=== PATIENT | female | born 1960 | race Caucasian/White ===

== ENCOUNTER → 2017-06-19 | Outpatient (CLI) | payer MEDICAID | LOC: ROC 11:02 | PROVIDERS: ATTEND Radiology Radiation Oncology | DX: C50.912 Malignant neoplasm of unspecified site of left female breast (principal) | CPT/HCPCS: 99213; G0463 ==

== ENCOUNTER 2017-06-22 19:24 | Emergency (ER) | payer MEDICAID ==
[~2017-06-22] VITALS: Ht 157.5 cm; Wt 87.9 kg
[2017-06-22 19:29] VITALS: BP 126/74
[2017-06-22 20:21] LABS: RAPID INFLUENZA A Negative (Negative); RAPID INFLUENZA B Negative (Negative)
[2017-06-22] MEDS ORDERED: AZITHROMYCIN 500 MG TABLET ONE (20:25)
[2017-06-22] MEDS ORDERED: CEFTRIAXONE 1,000 MG ONE (20:25)
[2017-06-22] MEDS ORDERED: AZITHROMYCIN 500 MG TABLET PO ONE (20:30)
[2017-06-22] MEDS ORDERED: ALBUTEROL/IPRATROPIUM 2.5MG/0.5MG, 3 ML NPPB ONE (20:30)
[2017-06-22] MEDS ORDERED: CEFTRIAXONE 1,000 MG IM ONE (20:30)
[2017-06-22] MEDS ORDERED: ALBUTEROL/IPRATROPIUM 2.5MG/0.5MG, 3 ML ONE (20:49)
== END 2017-06-22 21:34 | disposition home or self-care (01) ==
LOC: ED 21:08
DX: J18.1 Lobar pneumonia, unspecified organism (principal); J44.9 Chronic obstructive pulmonary disease, unspecified; Z85.3 Personal history of malignant neoplasm of breast; Z92.3 Personal history of irradiation
CPT/HCPCS: 71046; 87400; 94640; 96372; 99285; J0696; J7620

== ENCOUNTER 2018-09-10 14:34 | Emergency (ER) | payer MEDICAID ==
[~2018-09-10] VITALS: Ht 157.5 cm; Wt 86.5 kg
[2018-09-10] MEDS ORDERED: ALBUTEROL/IPRATROPIUM 2.5MG/0.5MG, 3 ML ONE (14:46)
--- NOTE | 2018-09-10 14:51 | NUR ---
PT IS IN RADIOLOGY AT THIS TIME. EKG TO FOLLOW.
[2018-09-10] MEDS ORDERED: ALBUTEROL/IPRATROPIUM 2.5MG/0.5MG, 3 ML NPPB SCH (15:00)
[2018-09-10 15:01] LABS: BASOPHILS # (AUTO) 0.08 x10^3/uL (0-0.1); BASOPHILS % (AUTO) 1 % (0-1); EOSINOPHILS # (AUTO) 0.37 x10^3/uL (0-0.4); EOSINOPHILS % (AUTO) 4 % (1-7); LYMPHOCYTES # (AUTO) 2.55 x10^3/uL (1-3.4); LYMPHOCYTES % (AUTO) 26 % (22-44); MD NO; MEAN CORPUSCULAR HEMOGLOBIN 33.5 pg (27.0-34.8); MEAN CORPUSCULAR HGB CONC 34.4 g/dL (32.4-35.8); MEAN CORPUSCULAR VOLUME 97.3 fL (80-100); MEAN PLATELET VOLUME 7.5 fL (7.4-10.4); MONOCYTES % (AUTO) 11 % (2-9); NEUTROPHILS # (AUTO) 5.87 x10^3/uL (1.8-6.8); NEUTROPHILS % (AUTO) 59 % (42-75); PLATELET COUNT 457 x10^3/uL (130-400); RED BLOOD COUNT 3.85 x10^6/uL (3.82-5.3); RED CELL DISTRIBUTION WIDTH 14.1 % (9.6-15.2)
[2018-09-10 15:07] LABS: ALBUMIN 3.2 g/dL (3.4-5.0); ANION GAP 5 mmol/L (5-15); CALCIUM 8.4 mg/dL (8.5-10.1); CHLORIDE 111 mmol/L (98-107); CREATININE 0.64 mg/dL (0.55-1.02)
--- NOTE | 2018-09-10 15:09 | NUR ---
PT TO ED FOR SOB X1 WEEK OR MORE. HX COPD. CONNECTED TO MONITORS. VSS. NEB AND CXR COMPLETE. LABS DRAWN. EDMD ASSESSMENT COMPLETE. AWAITING RESULTS AT THIS TIME.
--- NOTE | 2018-09-10 15:28 | NUR ---
ALL RESULTS BACK AT THIS TIME. CHART UP FOR RECHECK. VSS. NO NEEDS EXPRESSED.
[2018-09-10 16:09] VITALS: BP 136/78
== END 2018-09-10 16:11 | disposition home or self-care (01) ==
LOC: ED 15:48
DX: J44.1 Chronic obstructive pulmonary disease with (acute) exacerbation (principal); F17.200 Nicotine dependence, unspecified, uncomplicated
CPT/HCPCS: 36415; 71046; 80048; 82040; 85025; 93005; 94640; 99284; J7512; J7620